=== PATIENT | female | born 1990 | race Caucasian/White ===

== ENCOUNTER 2018-02-17 11:51 | Emergency (ER) | payer OTHER ==
[~2018-02-17] VITALS: Ht 152.4 cm; Wt 86.2 kg
--- NOTE | ~2018-02-17 | EKG ---
[place] [address] [facility] [place] [address] ELECTROCARDIOGRAM REPORT Name: SNUDAR SILVEIRA Room #: [facility] Christy#: [id number] Admission: 02/17/18 Attend Phys: Discharge: Date of : 88 Report #: [id number] THIS REPORT FOR: //name// [facility] ED Test Date: 2018-02-17 Test Time: 11:58:37 Pat Name: SUNDAR SILVEIRA Department: Room: Gender: F Floor Representative: GABRIELLA : 1990 Requested By: Roxana Sesay Order Number: [id number] MD: Christiano Mendes Measurements Intervals [place] Rate: 75 P: 28 MD: 141 QRS: 34 QRSD: 78 T: 24 QT: 395 QTc: 442 Interpretive Statements Sinus rhythm Low voltage, precordial leads No previous ECG available for comparison Electronically Signed On 02-17-2018 13:31:03 [employer] by Christiano Mendes [email or web address] <ELECTRONICALLY SIGNED> By: Christiano Mendes MD 02/17/18 1331 [id number] Christiano Mendes MD /[email or web address]
[2018-02-17] MEDS ORDERED: SERTRALINE HCL50 MG PO (12:05)
[2018-02-17] MEDS ORDERED: KEPPRA 500 MG500 M1 (12:05)
[2018-02-17] MEDS ORDERED: ATIVAN0.5 MG PO (12:05)
[2018-02-17] MEDS ORDERED: GLUCOPHAGE XR750 MG PO (12:06)
[2018-02-17 12:11] LABS: HEMATOCRIT 40.1 % (37.0-47.0); HEMOGLOBIN 13.2 gm/dL (12.0-15.0); MCH 27.7 pg (26.0-34.0); MCHC 32.9 g/dL (28.0-37.0); MCV 84.3 fL (80.0-100.0); RBC 4.76 mil/uL (4.20-5.00); RDW 15.5 % (10.5-14.5); WBC 10.8 thou/uL (4.0-11.0)
[2018-02-17 12:22] LABS: CALCIUM 9.5 mg/dL (8.5-10.1); CREATININE 0.8 mg/dL (0.6-1.0); POTASSIUM 4.1 mmol/L (3.5-5.1)
[2018-02-17 12:58] LABS: URINE BILIRUBIN NEGATIVE (Negative); URINE BLOOD 2+ (Negative); URINE CLARITY CLEAR; URINE COLOR YELLOW; URINE GLUCOSE-RANDOM* NEGATIVE (Negative); URINE KETONES NEGATIVE (Negative); URINE LEUKOCYTES-REFLEX NEGATIVE (Negative); URINE NITRITE-REFLEX NEGATIVE (Negative); URINE PROTEIN (DIPSTICK) NEGATIVE (Negative); URINE UROBILINOGEN 0.2 E.U./dl (0.2-1.0)
[2018-02-17 13:05] LABS: BACTERIA-REFLEX 1-9 Few /HPF (None Seen); CASTS None Seen /LPF (None Seen); CRYSTALS None Seen /LPF (None Seen); SQUAMOUS 0-3 Few /LPF (0-3); URINE RBC None Seen /HPF (0-2); URINE WBC-REFLEX 0-5 Rare /HPF (0-5)
[2018-02-17 13:06] LABS: AMP/METHAMP Negative (Negative); BARBITURATES Negative (Negative); BENZODIAZEPINES Negative (Negative); COCAINE Negative (Negative); METHADONE Negative (Negative); OPIATES Negative (Negative); PCP Negative (Negative)
[2018-02-17] MEDS ORDERED: KEPPRA750 MG PO (17:09)
[2018-02-17 17:32] VITALS: BP 110/74
== END 2018-02-17 17:33 | disposition home or self-care (01) ==
LOC: ER 11:51
PROVIDERS: Student in an Organized Health Care Education/Training Program
DX: R56.9 Unspecified convulsions (principal); F41.9 Anxiety disorder, unspecified; Z91.041 Radiographic dye allergy status; Z88.2 Allergy status to sulfonamides; Z91.018 Allergy to other foods